=== PATIENT | female | born 1945 | race American Indian/Alaskan Native ===

== ENCOUNTER 2016-09-04 12:37 | Inpatient (IN) | payer MEDICARE ==
[2016-09-04 13:45] LABS: Basophils % (Auto) 1.3 % (0.0-1.8); Eosinophils % (Auto) 1.9 % (0.0-4.3); Hematocrit 34.3 % (30.3-42.9); Hemoglobin 10.8 gm/dl (10.1-14.3); Mean Corpuscular HGB Conc 31 % (30-34); Mean Corpuscular Hemoglobin 31 pg (28-32); Mean Corpuscular Volume 98 fl (79-97); Platelet Count 141 K/mm3 (140-440); White Blood Count 8.7 K/mm3 (4.5-11.0)
[2016-09-04 13:58] LABS: BUN/Creatinine Ratio 9.28; Calcium 8.4 mg/dL (8.4-10.2); Chloride 96.9 mmol/L (98-107); Potassium 3.9 mmol/L (3.6-5.0)
--- NOTE | 2016-09-04 14:16 | Emergency Department Report ---
ED General Adult HPI - General Chief complaint: Dyspnea/Respdistress Stated complaint: CHEST AND BACK PAIN Time Seen by Provider: 09/04/16 13:40 Source: patient, EMS Mode of arrival: Stretcher Limitations: Other - History of Present Illness Initial comments: Patient presents to the emergency department complaining of anterior right sided chest pain which is nonpleuritic and right lower flank pain. She does not complain of cough nor shortness of breath. She does not complain of dysuria or anterior abdominal discomfort. She states she does urinate. Her last dialysis was Monday. She is not complaining of any acute shortness of breath. She is on chronic O2 at 2 L. She states these pains have been present and apparently unrelated for the past few days. She has not done any recent traveling. -: Gradual, days(s) Location: chest, back Quality: aching Consistency: intermittent Improves with: none Worsens with: none Associated Symptoms: denies other symptoms - Related Data Home Medications Medication Instructions Recorded Confirmed Last Taken traMADol [Ultram 50 MG tab] 50 mg PO Q6HR PRN 07/07/15 07/03/16 07/03/16 Simvastatin [Zocor TAB] 40 mg PO QHS 11/30/15 07/03/16 07/03/16 Lactulose 10 gm PO DAILY 07/03/16 07/03/16 07/03/16 Nystatin Oint [Mycostatin Oint] 100,000 units TP BID 07/03/16 07/03/16 07/03/16 Sodium Bicarbonate 650 mg PO BID 07/03/16 07/03/16 07/03/16 Vit B Cplx #11/FA/C/Biot/Zn Ox 1 each PO DAILY 07/03/16 07/03/16 07/03/16 [Dialyvite with Zinc Tablet] Previous Rx's Medication Instructions Recorded Last Taken Type Aspirin [Aspirin BABY CHEW TAB] 81 mg PO QDAY tab.chew 10/04/15 07/03/16 Rx ALPRAZolam [Xanax TAB] 0.5 mg PO Q12HR 30 Days 07/04/16 07/03/16 Rx Insulin NPH/Regular [NovoLIN 70/30] 5 unit SUB-Q QPM #10 ml 07/04/16 07/03/16 Rx Insulin NPH/Regular [NovoLIN 70/30] 10 unit SUB-Q QAM #10 ml 07/04/16 07/03/16 Rx Pantoprazole [Protonix TAB] 40 mg PO QDAY tablet 07/04/16 Unknown Rx Allergies Allergy/AdvReac Type Severity Reaction Status Date / Time Iodinated Contrast Media - AdvReac Swelling Verified 11/30/15 13:54 IV Dye shellfish derived AdvReac Swelling Verified 05/05/14 23:50 ED Review of Systems ROS: Stated complaint: CHEST AND BACK PAIN Other details as noted in HPI Constitutional: denies: chills, fever Eyes: denies: eye pain, eye discharge, vision change ENT: denies: ear pain, throat pain Respiratory: SOB with exertion. denies: cough, wheezing Cardiovascular: as per HPI, chest pain. denies: palpitations Endocrine: no symptoms reported Gastrointestinal: denies: abdominal pain, nausea, diarrhea Genitourinary: denies: urgency, dysuria, discharge Musculoskeletal: denies: back pain, joint swelling, arthralgia Skin: denies: rash, lesions Neurological: denies: headache, weakness, paresthesias Psychiatric: denies: anxiety, depression Hematological/Lymphatic: denies: easy bleeding, easy bruising ED Past Medical Hx - Past Medical History Hx Hypertension: Yes (high cholestrol) Hx Congestive Heart Failure: Yes (09/2015) Hx Diabetes: Yes (IDDM > 5 YEARS) Hx GERD: Yes Hx Renal Disease: Yes (ESRD M,W,F) Hx Arthritis: Yes Hx Psychiatric Treatment: (anxiety) Hx Asthma: Yes Hx COPD: Yes (O2 DEPENDENT) Hx HIV: No Additional medical history: anemia - Surgical History Hx Cholecystectomy: Yes Additional Surgical History: hysterectomy, fibroid tumor removal, vas-cath to right chest - Social History Smoking Status: Former Smoker Substance Use Type: None - Medications Home Medications: Home Medications Medication Instructions Recorded Confirmed Last Taken Type traMADol [Ultram 50 MG tab] 50 mg PO Q6HR PRN 07/07/15 07/03/16 07/03/16 History Aspirin [Aspirin BABY CHEW TAB] 81 mg PO QDAY tab.chew 10/04/15 07/03/16 Rx Simvastatin [Zocor TAB] 40 mg PO QHS 11/30/15 07/03/16 07/03/16 History Lactulose 10 gm PO DAILY 07/03/16 07/03/16 07/03/16 History Nystatin Oint [Mycostatin Oint] 100,000 units TP BID 07/03/16 07/03/16 07/03/16 History Sodium Bicarbonate 650 mg PO BID 07/03/16 07/03/16 07/03/16 History Vit B Cplx #11/FA/C/Biot/Zn Ox 1 each PO DAILY 07/03/16 07/03/16 07/03/16 History [Dialyvite with Zinc Tablet] ALPRAZolam [Xanax TAB] 0.5 mg PO Q12HR 30 Days 07/04/16 07/03/16 07/03/16 Rx Insulin NPH/Regular [NovoLIN 70/30] 5 unit SUB-Q QPM #10 ml 07/04/16 07/03/16 Rx Insulin NPH/Regular [NovoLIN 70/30] 10 unit SUB-Q QAM #10 ml 07/04/16 07/03/16 07/03/16 Rx Pantoprazole [Protonix TAB] 40 mg PO QDAY tablet 07/04/16 Unknown Rx ED Physical Exam - General Limitations: Physical Limitation General appearance: alert, in no apparent distress - Head Head exam: Present: atraumatic, normocephalic - Eye Eye exam: Present: normal appearance. Absent: scleral icterus - ENT ENT exam: Present: mucous membranes moist - Neck Neck exam: Present: normal inspection - Respiratory Respiratory exam: Present: rhonchi (some basilar rhonchi). Absent: respiratory distress - Cardiovascular Cardiovascular Exam: Present: regular rate, normal rhythm. Absent: systolic murmur, diastolic murmur, rubs, gallop - GI/Abdominal GI/Abdominal exam: Present: soft, normal bowel sounds. Absent: distended, tenderness, guarding, rebound, rigid - Extremities Exam Extremities exam: Absent: tenderness - Back Exam Back exam: Present: normal inspection. Absent: CVA tenderness (R), CVA tenderness (L) - Neurological Exam Neurological exam: Present: alert, oriented X3, other (no acute focal deficit) - Psychiatric Psychiatric exam: Present: normal affect, normal mood - Skin Skin exam: Present: warm, dry, intact, normal color. Absent: rash ED Course Vital Signs 09/04/16 09/04/16 09/04/16 12:52 12:55 13:09 Temperature 98.8 F Pulse Rate Respiratory Rate Blood Pressure 172/62 172/62 Blood Pressure [Left] O2 Sat by Pulse 99 78 L Oximetry 09/04/16 09/04/16 09/04/16 13:17 13:47 14:01 Temperature 98.6 F Pulse Rate 92 H 90 90 Respiratory 16 21 Rate Blood Pressure 161/67 Blood Pressure 172/62 [Left] O2 Sat by Pulse 100 100 Oximetry 09/04/16 09/04/16 09/04/16 15:01 16:01 16:49 Temperature Pulse Rate 90 Respiratory 19 Rate Blood Pressure 174/56 128/48 128/48 Blood Pressure [Left] O2 Sat by Pulse 99 93 66 L Oximetry 09/04/16 09/04/16 09/04/16 16:52 17:01 17:15 Temperature Pulse Rate Respiratory 24 Rate Blood Pressure 93/38 93/38 Blood Pressure [Left] O2 Sat by Pulse 99 99 86 Oximetry 09/04/16 09/04/16 09/04/16 17:33 17:46 18:00 Temperature Pulse Rate Respiratory Rate Blood Pressure 93/38 93/38 93/38 Blood Pressure [Left] O2 Sat by Pulse 100 85 Oximetry 09/04/16 09/04/16 09/04/16 18:15 18:30 18:45 Temperature Pulse Rate Respiratory Rate Blood Pressure 151/58 151/58 151/58 Blood Pressure [Left] O2 Sat by Pulse 66 L 89 Oximetry 09/04/16 09/04/16 19:24 19:30 Temperature Pulse Rate 93 H Respiratory 21 Rate Blood Pressure 151/58 151/58 Blood Pressure [Left] O2 Sat by Pulse 58 L 100 Oximetry - Reevaluation(s) Reevaluation #1: I discussed the patient's management with Dr. Garcia. He was inclined to treat her with subcutaneous heparin. He did want to get an emergency VQ scan nonetheless. Both these things were ordered. The patient's blood pressure remained mildly elevated. She was placed on Nitropaste and given a baby aspirin as well. She did not have any substantial pain in the emergency department. She was admitted for further care and evaluation. 09/04/16 19:42 ED Medical Decision Making - Lab Data Result diagrams: 09/04/16 13:28 09/04/16 13:28 Laboratory Results - last 24 hr 09/04/16 09/04/16 13:28 13:28 WBC 8.7 RBC 3.50 L Hgb 10.8 Hct 34.3 MCV 98 H MCH 31 MCHC 31 RDW 13.0 L Plt Count 141 Lymph % (Auto) 23.5 [place] % (Auto) 9.6 H Eos % (Auto) 1.9 Baso % (Auto) 1.3 Lymph # 2.0 [place] # 0.8 Eos # 0.2 Baso # 0.1 Seg Neutrophils % 63.7 Seg Neutrophils # 5.5 Sodium 135 L Potassium 3.9 Chloride 96.9 L Carbon Dioxide 24 Anion Gap 18 BUN 39 H Creatinine 4.2 H Estimated GFR 13 BUN/Creatinine Ratio 9.28 Glucose 185 H Calcium 8.4 Troponin T 0.022 Laboratory Results - last 24 hr 09/04/16 09/04/16 09/04/16 13:28 13:28 14:48 WBC 8.7 RBC 3.50 L Hgb 10.8 Hct 34.3 MCV 98 H MCH 31 MCHC 31 RDW 13.0 L Plt Count 141 Lymph % (Auto) 23.5 [place] % (Auto) 9.6 H Eos % (Auto) 1.9 Baso % (Auto) 1.3 Lymph # 2.0 [place] # 0.8 Eos # 0.2 Baso # 0.1 Seg Neutrophils % 63.7 Seg Neutrophils # 5.5 PT 12.2 INR 0.91 APTT 33.7 Sodium 135 L Potassium 3.9 Chloride 96.9 L Carbon Dioxide 24 Anion Gap 18 BUN 39 H Creatinine 4.2 H Estimated GFR 13 BUN/Creatinine Ratio 9.28 Glucose 185 H Calcium 8.4 Total Bilirubin Direct Bilirubin Indirect Bilirubin AST ALT Alkaline Phosphatase Troponin T 0.022 NT-Pro-B Natriuret Pep Total Protein Albumin Albumin/Globulin Ratio Urine Color Urine Turbidity Urine pH Ur Specific [place] Urine Protein Urine Glucose (UA) Urine Ketones Urine Blood Urine Nitrite Urine Bilirubin Urine Urobilinogen Ur Leukocyte Esterase Urine WBC (Auto) Urine RBC (Auto) U Epithel Cells (Auto) Urine Bacteria (Auto) Urine Mucus 09/04/16 09/04/16 14:48 15:55 WBC RBC Hgb Hct MCV MCH MCHC RDW Plt Count Lymph % (Auto) [place] % (Auto) Eos % (Auto) Baso % (Auto) Lymph # [place] # Eos # Baso # Seg Neutrophils % Seg Neutrophils # PT INR APTT Sodium Potassium Chloride Carbon Dioxide Anion Gap BUN Creatinine Estimated GFR BUN/Creatinine Ratio Glucose Calcium Total Bilirubin 0.4 Direct Bilirubin < 0.2 Indirect Bilirubin 0.2 AST 12 ALT 11 Alkaline Phosphatase 135 H Troponin T NT-Pro-B Natriuret Pep 2326 H Total Protein 6.0 L Albumin 3.8 L Albumin/Globulin Ratio 1.7 Urine Color Straw Urine Turbidity Clear Urine pH 5.0 Ur Specific [place] 1.005 Urine Protein 100 mg/dl Urine Glucose (UA) Neg Urine Ketones Neg Urine Blood Sm Urine Nitrite Neg Urine Bilirubin Neg Urine Urobilinogen < 2.0 Ur Leukocyte Esterase Neg Urine WBC (Auto) < 1.0 Urine RBC (Auto) 1.0 U Epithel Cells (Auto) 2.0 Urine Bacteria (Auto) 2+ Urine Mucus Few - EKG Data -: EKG Interpreted by Me EKG shows normal: sinus rhythm, intervals, QRS complexes, ST-T waves - EKG Data Interpretation: other (anterior fascicular block and nonspecific ST-T wave changes) - Radiology Data Radiology results: report reviewed (low probability of pulmonary embolism on V/ Q scan) interpreted by me: Chest x-ray cardiomegaly CHF Critical care attestation.: If time is entered above; I have spent that time in minutes in the direct care of this critically ill patient, excluding procedure time. ED Disposition Clinical Impression: ESRD on dialysis, Right-sided chest pain, Right flank pain Congestive heart failure Qualifiers: Congestive heart failure type: unspecified congestive heart failure type Congestive heart failure chronicity: acute Qualified Code(s): I50.9 - Heart failure, unspecified Disposition: OP ADMITTED IP TO THIS HOSP Is pt being admited?: Yes Does the pt Need Aspirin: Yes Condition: Stable Instructions: Chest Pain (ED) Time of Disposition: 19:48
[2016-09-04] MEDS ORDERED: NORCO 5/325 PO ONE (14:42)
[2016-09-04 15:13] LABS: INR 0.91 (0.87-1.13)
[2016-09-04 15:14] LABS: Partial Thromboplastin Time 33.7 Sec. (24.2-36.6)
[2016-09-04 15:30] LABS: Alanine Aminotransferase 11 units/L (7-56); Albumin 3.8 g/dL (3.9-5); Albumin/Globulin Ratio 1.7 %; Alkaline Phosphatase 135 units/L (35-129); Bilirubin,Total 0.4 mg/dL (0.1-1.2)
[2016-09-04 15:58] LABS: Bilirubin,Direct < 0.2 mg/dL (0-0.2); Bilirubin,Indirect 0.2 mg/dL
[2016-09-04 16:04] LABS: Bacteria,Urine 2+ /HPF (Negative); Bilirubin,Urine NEG (Negative); Blood,Urine SM (Negative); Ketones,Urine NEG (Negative); Leukocyte Esterase,Urine NEG (Negative); Mucus,Urine FEW /HPF; Nitrite,Urine NEG (Negative); Urobilinogen,Urine < 2.0 mg/dL (<2.0); WBC,Urine < 1.0 /HPF (0.0-6.0)
[2016-09-04] MEDS ORDERED: HEPARIN SUB-Q ONE (18:11)
[2016-09-04] MEDS ORDERED: BABY ASPIRIN PO ONE (19:38)
[2016-09-04] MEDS ORDERED: NITRO-BID 2% TP ONE (19:38)
--- NOTE | 2016-09-04 19:43 | Nuclear Medicine Report ---
FINAL REPORT PROCEDURE: NM LUNG SCAN PERF/VENT TECHNIQUE: Five mCi Tc-99m MAA was injected IV for pulmonary perfusion imaging in multiple projections. 15 mCi xenon 133 gas was inhaled for pulmonary ventilation imaging in multiple projections. HISTORY: R side chest elevated dimer COMPARISON: Chest x-ray from the same day FINDINGS: Matched defect from the enlarged heart is seen. There may be a few small matched defects but no large perfusion defect or mismatched defect is seen. IMPRESSION: Exam has low probability for pulmonary embolus using revised PIOPED criteria.
[2016-09-04] MEDS ORDERED: NON-FORMULARY (Vit B Cplx #11/Fa/C/Biot/Zn Ox [Dialyvite With Zinc Tablet] 1 EACH) PO SCH (19:45)
[2016-09-04] MEDS ORDERED: HEPARIN ONE (20:19)
[2016-09-04] MEDS: BABY ASPIRIN PO SCH (20:50)
[2016-09-04 20:52] LABS: Albumin 3.2 g/dL (3.9-5); Albumin/Globulin Ratio 1.1 %; BUN/Creatinine Ratio 9.55; Bilirubin,Total 0.3 mg/dL (0.1-1.2); Calcium 8.3 mg/dL (8.4-10.2); Chloride 100.4 mmol/L (98-107); Potassium 4.2 mmol/L (3.6-5.0); Total Protein 6.1 g/dL (6.3-8.2)
--- NOTE | 2016-09-04 21:23 | Admit Criteria Form ---
Admission Criteria Documentation: HEART FAILURE: COMMON COMPLICATIONS Clinical Indications for Inpatient Care (Place 'X' for any and all applicable criteria): Ongoing inpatient care may be indicated for heart failure with ANY ONE of the following (1)(2)(3)(4)(5): [ ]I. Ongoing need for care for primary condition requiring frequent therapy adjustments because of changes in cardiac function (eg, drug dosage changes for drugs that are renally metabolized) [ ]II. New-onset heart failure [ ]III. Heart failure with decreased urine output not responsive to attempts to optimize volume status [ ]IV. Acute cardiac ischemia causing or associated with failure [ X]V. Complications of heart failure, including ANY ONE of the following: [ ]a) Pericardial effusion [ ]b) Symptomatic pleural effusion [ ]c) O2 saturation <90% or PO2 < 60 mm Hg (8.0 kPa) on room air or require baseline supplemental O2 [ ]d) Tachypnea [ X]e) Dyspnea [ ]f) Syncope [ ]g) Change in mental status [ ]h) Acute renal insufficiency that is severe (reduction of more than 50% in estimated glomerular filtration rate from baseline) or progressive reduction of more than 25% in estimated glomerular filtration rate from baseline, with creatinine continuing to rise) [ ]i) Hemodynamic instability [ ]j) Anasarca [ ]k) Clinically significant metabolic abnormalities due to heart failure (eg, new-onset metabolic acidosis) Extended stay beyond goal length of stay for primary condition may be needed until ALL of the following are present(1)(3): [ ]a) Stable and effective diuretic regimen established (or patient on stable dialysis regimen if in chronic renal failure) [ ]b) Breathing comfortably at rest [ ]c) Saturation of arterial oxygen greater than 90% or at acceptable baseline [ ]d) Pulmonary edema absent or improved [ ]e) Hemodynamic stability [ ]f) Volume status acceptable on oral medication [ ]g) Peripheral or sacral edema absent or improved [ ]h) Renal function stable and manageable at a lower level of care [ ]i) Complications (eg, pleural effusion) resolved or manageable at a lower level of care [ ]j) Patient or caregiver has received written discharge instructions or educational material addressing activity level, diet, discharge medications, follow-up appointment, weight monitoring, and what to do if symptoms worsen The original [facility] content created by [employer] has been revised. The portions of the content which have been revised are identified through the use of italic text or in bold, and [facility] has neither reviewed nor approved the modified material.All other unmodified content is copyright [facility]. Please see references footnoted in the original [facility] edition 2016 Admission Criteria Met: Yes
[2016-09-04] MEDS: SODIUM BICARBONATE PO SCH (22:00)
[2016-09-04] MEDS: XANAX PO SCH (22:00)
[2016-09-04] MEDS: ZOCOR PO SCH (22:55)
--- NOTE | 2016-09-04 23:59 | History and Physical Report ---
History of Present Illness Date of examination: 09/04/16 Date of admission: 09/04/16 19:27 Chief complaint: V shortness of breath History of present illness: Patient is a 71-year-old lady was a history of end-stage renal disease hemodialysis on Wednesdays and Fridays, congestive heart failure started having right-sided chest pain at home. Dull in nature. Mild to moderate in severity. No known aggravating or relieving factors. Denies any shortness of breath. No diaphoresis. Nonradiatory. Came to the emergency department would be and was found to be elevated as well as creatinine to 43 and 4.3. ProBNP was elevated to over 2300. Admission was therefore requested. Past History Past Medical History: ESRD, heart failure, hypertension, hyperlipidemia Past Surgical History: hysterectomy, Other (left upper arm AV fistula) Social history: denies: smoking, alcohol abuse, IV drug use Family history: no significant family history Medications and Allergies Allergies Allergy/AdvReac Type Severity Reaction Status Date / Time Iodinated Contrast Media - AdvReac Swelling Verified 11/30/15 13:54 IV Dye shellfish derived AdvReac Swelling Verified 05/05/14 23:50 Home Medications Medication Instructions Recorded Confirmed Last Taken Type traMADol [Ultram 50 MG tab] 50 mg PO Q6HR PRN 07/07/15 07/03/16 07/03/16 History Aspirin [Aspirin BABY CHEW TAB] 81 mg PO QDAY tab.chew 10/04/15 07/03/16 Rx Simvastatin [Zocor TAB] 40 mg PO QHS 11/30/15 07/03/16 07/03/16 History Lactulose 10 gm PO DAILY 07/03/16 07/03/16 07/03/16 History Nystatin Oint [Mycostatin Oint] 100,000 units TP BID 07/03/16 07/03/16 07/03/16 History Sodium Bicarbonate 650 mg PO BID 07/03/16 07/03/16 07/03/16 History Vit B Cplx #11/FA/C/Biot/Zn Ox 1 each PO DAILY 07/03/16 07/03/16 07/03/16 History [Dialyvite with Zinc Tablet] ALPRAZolam [Xanax TAB] 0.5 mg PO Q12HR 30 Days 07/04/16 07/03/16 07/03/16 Rx Insulin NPH/Regular [NovoLIN 70/30] 5 unit SUB-Q QPM #10 ml 07/04/16 07/03/16 Rx Insulin NPH/Regular [NovoLIN 70/30] 10 unit SUB-Q QAM #10 ml 07/04/16 07/03/16 07/03/16 Rx Pantoprazole [Protonix TAB] 40 mg PO QDAY tablet 07/04/16 Unknown Rx Active Meds: Active Medications Alprazolam (Xanax) 0.5 mg PO Q12HR [facility] Aspirin (Baby Aspirin) 81 mg PO QDAY [facility] Last Admin: 09/04/16 20:50 Dose: Not Given Enoxaparin Sodium (Lovenox) 30 mg SUB-Q QDAY KRISTY Insulin Human Isoph/Insulin Regular (Novolin 70/30) 10 unit SUB-Q QAM KRISTY Insulin Human Isoph/Insulin Regular (Novolin 70/30) 5 unit SUB-Q QPM [facility] Lactulose (Cephulac) 10 gm PO QDAY [facility] Multivit/Ca Carb/B Cmplx/FA/Prenat (Renal Caps) 1 cap PO QDAY KRISTY Simvastatin (Zocor) 40 mg PO QHS KRISTY Sodium Bicarbonate (Sodium Bicarbonate) 650 mg PO BID [facility] Review of Systems Constitutional: no weight loss, no weight gain Ears, nose, mouth and throat: no ear pain, no ear discharge, no tinnitis, no decreased hearing Respiratory: no cough, no cough with sputum, no excessive sputum, no hemoptysis Gastrointestinal: no nausea, no vomiting, no diarrhea, no melena, no hematochezia Genitourinary Female: no flank pain, no dysuria Musculoskeletal: low back pain, no shooting arm pain, no arm numbness/tingling Integumentary: no rash, no pruritis, no redness Neurological: no transient paralysis, no paralysis, no weakness, no parathesias Psychiatric: no anxiety, no memory loss, no change in sleep habits Endocrine: no cold intolerance, no heat intolerance, no polyphagia, no excessive thirst, no polyuria Hematologic/Lymphatic: no easy bruising, no easy bleeding Allergic/Immunologic: no urticaria, no allergic rhinitis Exam - Constitutional Vitals: Temp Pulse Resp BP Pulse Ox 98.6 F 86 12 148/54 100 09/04/16 13:17 09/04/16 20:47 09/04/16 20:30 09/04/16 20:47 09/04/16 20:30 - EENT Eyes: Present: PERRL ENT: hearing intact - Neck Neck: Present: supple - Respiratory Respiratory: bilateral: CTA - Cardiovascular Rhythm: regular Heart Sounds: Present: S1 & S2 - Extremities Extremities: no ischemia, pulses intact - Abdominal General gastrointestinal: Present: soft, non-tender, non-distended Female genitourinary: Present: deferred - Rectal Rectal Exam: deferred, normal exam-external/orifice, normal rectal tone - Integumentary Integumentary: Present: clear - Musculoskeletal Musculoskeletal: strength equal bilaterally - Psychiatric Psychiatric: appropriate mood/affect - Neurologic Neurologic: CNII-XII intact Results - Labs CBC & Chem 7: 09/04/16 13:28 09/04/16 20:15 Labs: Abnormal lab results 09/04/16 09/04/16 Range/Units 20:15 22:41 BUN 43 H (7-17) mg/dL Creatinine 4.5 H (0.7-1.2) mg/dL Glucose 201 H (65-100) mg/dL POC Glucose 146 H (70-105) Calcium 8.3 L (8.4-10.2) mg/dL Total Protein 6.1 L (6.3-8.2) g/dL Albumin 3.2 L (3.9-5) g/dL Assessment and Plan - Patient Problems (1) Congestive heart failure Diagnosis Date: 09/04/16 Current Visit: Yes Status: Acute Qualifiers: Congestive heart failure type: unspecified congestive heart failure type Congestive heart failure chronicity: acute Qualified Code(s): I50.9 - Heart failure, unspecified Plan to address problem: Strict input and output, daily weights, diuresis with Lasix. And beta blockers and jesus. We will obtain echocardiogram report was done April 2016. (2) Right flank pain Diagnosis Date: 09/04/16 Current Visit: Yes Status: Acute Plan to address problem: Secondary to Osteoarthritis (3) Right-sided chest pain Diagnosis Date: 09/04/16 Current Visit: Yes Status: Acute Plan to address problem: . Concern is for likely pulmonary embolism. Patient has elevated d-dimer. However VQ scan was remarkable for very low probability for PE. (4) ESRD on dialysis Diagnosis Date: 09/04/16 Current Visit: Yes Status: Chronic Plan to address problem: [employer] Systems Technician consulted to continue with hemodialysis (5) Elevated d-dimer Diagnosis Date: 09/04/16 Current Visit: Yes Status: Acute Plan to address problem: Likely secondary to end-stage renal disease VQ scan showed low probability for pulmonary embolism
[2016-09-05] MEDS: PERCOCET 5/325 PO PRN ×3 (05:25→21:01)
--- NOTE | 2016-09-05 08:31 | XRay Report ---
AP CHEST :09/04/16 12:37:00 CLINICAL: Shortness of breath. COMPARISON:07/03/16 FINDINGS: Stable cardiomegaly. Mild central vascular congestion with slight improvement compared to the previous exam. Improved aeration of both lungs. Some clearing in the left lung base and left costophrenic angle. IMPRESSION: CHF with improvement.
--- NOTE | 2016-09-05 09:24 | Consultation ---
History of Present Illness - Reason for Consult Consult date: 09/05/16 (pt was seen and examined this morning. Consult dictated) Past History Past Medical History: ESRD, heart failure, hypertension, hyperlipidemia Past Surgical History: hysterectomy, Other (left upper arm AV fistula) Social history: denies: smoking, alcohol abuse, IV drug use Family history: no significant family history Medications and Allergies Allergies Allergy/AdvReac Type Severity Reaction Status Date / Time Iodinated Contrast Media - AdvReac Swelling Verified 11/30/15 13:54 IV Dye shellfish derived AdvReac Swelling Verified 05/05/14 23:50 Home Medications Medication Instructions Recorded Confirmed Last Taken Type traMADol [Ultram 50 MG tab] 50 mg PO Q6HR PRN 07/07/15 07/03/16 07/03/16 History Aspirin [Aspirin BABY CHEW TAB] 81 mg PO QDAY tab.chew 10/04/15 07/03/16 Rx Simvastatin [Zocor TAB] 40 mg PO QHS 11/30/15 07/03/16 07/03/16 History Lactulose 10 gm PO DAILY 07/03/16 07/03/16 07/03/16 History Nystatin Oint [Mycostatin Oint] 100,000 units TP BID 07/03/16 07/03/16 07/03/16 History Sodium Bicarbonate 650 mg PO BID 07/03/16 07/03/16 07/03/16 History Vit B Cplx #11/FA/C/Biot/Zn Ox 1 each PO DAILY 07/03/16 07/03/16 07/03/16 History [Dialyvite with Zinc Tablet] ALPRAZolam [Xanax TAB] 0.5 mg PO Q12HR 30 Days 07/04/16 07/03/16 07/03/16 Rx Insulin NPH/Regular [NovoLIN 70/30] 5 unit SUB-Q QPM #10 ml 07/04/16 07/03/16 Rx Insulin NPH/Regular [NovoLIN 70/30] 10 unit SUB-Q QAM #10 ml 07/04/16 07/03/16 07/03/16 Rx Pantoprazole [Protonix TAB] 40 mg PO QDAY tablet 07/04/16 Unknown Rx Active Meds: Active Medications Alprazolam (Xanax) 0.5 mg PO Q12HR KRISTY Last Admin: 09/04/16 22:00 Dose: 0.5 mg Aspirin (Baby Aspirin) 81 mg PO QDAY [facility] Last Admin: 09/04/16 20:50 Dose: Not Given Enoxaparin Sodium (Lovenox) 30 mg SUB-Q QDAY [facility] Hydralazine HCl (Apresoline) 20 mg IV ONCE ONE Stop: 09/05/16 09:31 Insulin Human Isoph/Insulin Regular (Novolin 70/30) 10 unit SUB-Q QAM [facility] Insulin Human Isoph/Insulin Regular (Novolin 70/30) 5 unit SUB-Q QPM [facility] Lactulose (Cephulac) 10 gm PO QDAY [facility] Multivit/Ca Carb/B Cmplx/FA/Prenat (Renal Caps) 1 cap PO QDAY [facility] Oxycodone/Acetaminophen (Percocet 5/325) 1 tab PO Q4H PRN PRN Reason: Pain, Moderate (4-6) Last Admin: 09/05/16 05:25 Dose: 1 tab Simvastatin (Zocor) 40 mg PO QHS [facility] Last Admin: 09/04/16 22:55 Dose: 40 mg Sodium Bicarbonate (Sodium Bicarbonate) 650 mg PO BID [facility] Last Admin: 09/04/16 22:00 Dose: 650 mg Exam - Constitutional Vitals: Temp Pulse Resp BP Pulse Ox 98.2 F 90 18 190/82 99 09/05/16 09:03 09/05/16 09:03 09/05/16 09:03 09/05/16 09:03 09/05/16 09:03 Results - Labs CBC & Chem 7: 09/05/16 15:58 09/04/16 20:15 Labs: Abnormal lab results 09/04/16 09/04/16 Range/Units 20:15 22:41 BUN 43 H (7-17) mg/dL Creatinine 4.5 H (0.7-1.2) mg/dL Glucose 201 H (65-100) mg/dL POC Glucose 146 H (70-105) Calcium 8.3 L (8.4-10.2) mg/dL Total Protein 6.1 L (6.3-8.2) g/dL Albumin 3.2 L (3.9-5) g/dL
[2016-09-05] MEDS: LOVENOX SUB-Q SCH ×2 (09:32→11:10)
[2016-09-05] MEDS: APRESOLINE IV ONE ×2 (09:32→11:10)
[2016-09-05] MEDS: CEPHULAC PO SCH ×2 (09:32→11:10)
[2016-09-05] MEDS: Renal Caps PO SCH (09:33)
[2016-09-05] MEDS: SODIUM BICARBONATE PO SCH ×2 (09:33→21:01)
[2016-09-05] MEDS: XANAX PO SCH ×2 (09:33→21:01)
[2016-09-05] MEDS: BABY ASPIRIN PO SCH (09:34)
[2016-09-05] MEDS ORDERED: NACL 0.9% 1000 ML 100 ML IV PRN (09:41)
[2016-09-05] MEDS ORDERED: HEPARIN 10,000 UNITS/10 ML IV PRN (09:41)
[2016-09-05] MEDS ORDERED: CEPHULAC PR SCH (10:00)
[2016-09-05] MEDS ORDERED: APRESOLINE IV SCH (10:00)
[2016-09-05] MEDS ORDERED: CATAPRES PO ONE (12:30)
--- NOTE | 2016-09-05 15:26 | Progress Note ---
Assessment and Plan Assessment and plan: 1. Right-sided chest pain D-dimer was elevated in ER so VQ scan was obtained has low probability for PE Possible costochondritis 2. Hypertensive urgency SBP in 200s this morning Not on any medications at home Received hydralazine and clonidine 1 Start hydralazine scheduled along with HD with ultrafiltration Monitor BP and adjust regimen as needed 3. Diabetes On insulin 70/30 Add Accu-Cheks and SSI to assess insulin requirements 4. Hyperlipidemia On statin 5. ESRD on HD Nephrology consulted to resume regular schedule HD 6. DVT prophylaxis Discontinue Lovenox and start heparin subcutaneous History Interval history: seen on dialysis; this morning SBP in 200, without symptoms Hospitalist Physical - Constitutional Vitals: Temp Pulse Resp BP Pulse Ox 98 F 104 H 22 152/62 97 09/05/16 14:44 09/05/16 14:44 09/05/16 14:44 09/05/16 14:44 09/05/16 09:52 General appearance: Present: no acute distress, obese - EENT Eyes: Present: PERRL, EOM intact. Absent: scleral icterus, conjunctival injection - Neck Neck: Present: supple, normal ROM. Absent: masses or JVD - Respiratory Respiratory effort: normal Respiratory: bilateral: diminished, negative: rhonchi, wheezing - Cardiovascular Rhythm: regular Heart Sounds: Present: S1 & S2. Absent: systolic murmur - Extremities Extremities: no ischemia - Abdominal General gastrointestinal: soft, non-tender, non-distended, normal bowel sounds - Integumentary Integumentary: Present: warm, dry. Absent: jaundice, rash - Psychiatric Psychiatric: cooperative - Neurologic Neurologic: CNII-XII intact, no focal deficits Results - Labs CBC & Chem 7: 09/04/16 13:28 09/04/16 20:15 Labs: Laboratory Last Values WBC 8.7 K/mm3 (4.5-11.0) 09/04/16 13:28 RBC 3.50 M/mm3 (3.65-5.03) L 09/04/16 13:28 Hgb 10.8 gm/dl (10.1-14.3) 09/04/16 13:28 Hct 34.3 % (30.3-42.9) 09/04/16 13:28 MCV 98 fl (79-97) H 09/04/16 13:28 MCH 31 pg (28-32) 09/04/16 13:28 MCHC 31 % (30-34) 09/04/16 13:28 RDW 13.0 % (13.2-15.2) L 09/04/16 13:28 Plt Count 141 K/mm3 (140-440) 09/04/16 13:28 Lymph % (Auto) 23.5 % (13.4-35.0) 09/04/16 13:28 [place] % (Auto) 9.6 % (0.0-7.3) H 09/04/16 13:28 Eos % (Auto) 1.9 % (0.0-4.3) 09/04/16 13:28 Baso % (Auto) 1.3 % (0.0-1.8) 09/04/16 13:28 Lymph # 2.0 K/mm3 (1.2-5.4) 09/04/16 13:28 [place] # 0.8 K/mm3 (0.0-0.8) 09/04/16 13:28 Eos # 0.2 K/mm3 (0.0-0.4) 09/04/16 13:28 Baso # 0.1 K/mm3 (0.0-0.1) 09/04/16 13:28 Seg Neutrophils % 63.7 % (40.0-70.0) 09/04/16 13:28 Seg Neutrophils # 5.5 K/mm3 (1.8-7.7) 09/04/16 13:28 PT 12.2 Sec. (12.2-14.9) 09/04/16 14:48 INR 0.91 (0.87-1.13) 09/04/16 14:48 APTT 33.7 Sec. (24.2-36.6) 09/04/16 14:48 D-Dimer 379.65 ng/mlDDU (0-234) H 09/04/16 17:38 Sodium 138 mmol/L (137-145) 09/04/16 20:15 Potassium 4.2 mmol/L (3.6-5.0) 09/04/16 20:15 Chloride 100.4 mmol/L (98-107) 09/04/16 20:15 Carbon Dioxide 25 mmol/L (22-30) 09/04/16 20:15 Anion Gap 17 mmol/L 09/04/16 20:15 BUN 43 mg/dL (7-17) H 09/04/16 20:15 Creatinine 4.5 mg/dL (0.7-1.2) H 09/04/16 20:15 Estimated GFR 12 ml/min 09/04/16 20:15 BUN/Creatinine Ratio 9.55 % 09/04/16 20:15 Glucose 201 mg/dL (65-100) H 09/04/16 20:15 POC Glucose 211 (70-105) H 09/05/16 09:49 Calcium 8.3 mg/dL (8.4-10.2) L 09/04/16 20:15 Total Bilirubin 0.3 mg/dL (0.1-1.2) 09/04/16 20:15 Direct Bilirubin < 0.2 mg/dL (0-0.2) 09/04/16 14:48 Indirect Bilirubin 0.2 mg/dL 09/04/16 14:48 AST 12 units/L (5-40) 09/04/16 20:15 ALT 10 units/L (7-56) 09/04/16 20:15 Alkaline Phosphatase 125 units/L (35-129) 09/04/16 20:15 Troponin T 0.022 ng/mL (0.00-0.029) 09/04/16 13:28 NT-Pro-B Natriuret Pep 2326 pg/mL (0-900) H 09/04/16 14:48 Total Protein 6.1 g/dL (6.3-8.2) L 09/04/16 20:15 Albumin 3.2 g/dL (3.9-5) L 09/04/16 20:15 Albumin/Globulin Ratio 1.1 % 09/04/16 20:15 Urine Color Straw (Yellow) 09/04/16 15:55 Urine Turbidity Clear (Clear) 09/04/16 15:55 Urine pH 5.0 (5.0-7.0) 09/04/16 15:55 Ur Specific [place] 1.005 (1.003-1.030) 09/04/16 15:55 Urine Protein 100 mg/dl mg/dL (Negative) 09/04/16 15:55 Urine Glucose (UA) Neg mg/dL (Negative) 09/04/16 15:55 Urine Ketones Neg mg/dL (Negative) 09/04/16 15:55 Urine Blood Sm (Negative) 09/04/16 15:55 Urine Nitrite Neg (Negative) 09/04/16 15:55 Urine Bilirubin Neg (Negative) 09/04/16 15:55 Urine Urobilinogen < 2.0 mg/dL (<2.0) 09/04/16 15:55 Ur Leukocyte Esterase Neg (Negative) 09/04/16 15:55 Urine WBC (Auto) < 1.0 /HPF (0.0-6.0) 09/04/16 15:55 Urine RBC (Auto) 1.0 /HPF (0.0-6.0) 09/04/16 15:55 U Epithel Cells (Auto) 2.0 /HPF (0-13.0) 09/04/16 15:55 Urine Bacteria (Auto) 2+ /HPF (Negative) 09/04/16 15:55 Urine Mucus Few /HPF 09/04/16 15:55 - Imaging and Cardiology Chest x-ray: image reviewed (improved CHF) Imaging and Cardiology: VQ scan with low probability for PE
[2016-09-05 16:26] LABS: Basophils % (Auto) 0.9 % (0.0-1.8); Eosinophils % (Auto) 1.8 % (0.0-4.3); Hematocrit 37.1 % (30.3-42.9); Mean Corpuscular HGB Conc 32 % (30-34); Mean Corpuscular Hemoglobin 31 pg (28-32); Mean Corpuscular Volume 96 fl (79-97); Platelet Count 154 K/mm3 (140-440); Red Blood Count 3.86 M/mm3 (3.65-5.03); Red Cell Distribution Width 12.9 % (13.2-15.2); White Blood Count 7.7 K/mm3 (4.5-11.0)
[2016-09-05] MEDS ORDERED: NACL 0.9 (PRIMING MACHINE ONLY DIALYSIS) MC ONE (17:22)
[2016-09-05] MEDS: ZOCOR PO SCH (21:01)
[2016-09-05] MEDS: HEPARIN SUB-Q SCH (21:01)
[2016-09-05] MEDS: APRESOLINE PO SCH (21:04)
[2016-09-06] MEDS: HEPARIN SUB-Q SCH ×3 (05:26→22:00)
[2016-09-06] MEDS: APRESOLINE PO SCH ×3 (05:26→22:00)
[2016-09-06 05:28] LABS: Albumin 3.3 g/dL (3.9-5); BUN/Creatinine Ratio 8.33; Bilirubin,Total 0.4 mg/dL (0.1-1.2); Calcium 8.5 mg/dL (8.4-10.2); Chloride 94.3 mmol/L (98-107); Potassium 3.8 mmol/L (3.6-5.0); Total Protein 6.5 g/dL (6.3-8.2)
[2016-09-06] MEDS: SODIUM BICARBONATE PO SCH ×2 (09:16→22:00)
[2016-09-06] MEDS: Renal Caps PO SCH (09:16)
[2016-09-06] MEDS: XANAX PO SCH ×2 (09:16→22:00)
[2016-09-06] MEDS: BABY ASPIRIN PO SCH (09:16)
--- NOTE | 2016-09-06 09:29 | Progress Note ---
Assessment and Plan - Patient Problems (1) ESCRF (end stage chronic renal failure) Current Visit: No Status: Chronic Plan to address problem: HD on M/W/. Clinically improving. Denies chest pain today. Continue present meds. (2) Diabetes Current Visit: No Status: Chronic Qualifiers: Diabetes mellitus type: type 2 Diabetes mellitus complication status: with kidney complications (3) HTN (hypertension) Current Visit: No Status: Chronic Qualifiers: Hypertension type: essential hypertension Qualified Code(s): I10 - Essential (primary) hypertension Plan to address problem: BP under better control today Subjective Date of service: 09/06/16 Interval history: pt is alert, oriented to place and person, denies CP or SOB Objective - Vital Signs Vital signs: Vital Signs - 12hr 09/06/16 09/06/16 09/06/16 00:45 01:44 04:10 Temperature 98.7 F 98.3 F Pulse Rate 104 H Pulse Rate [ 104 H 123 H Left] Pulse Rate [ Right] Respiratory 20 22 Rate Blood Pressure Blood Pressure 124/66 106/68 [Right Arm] O2 Sat by Pulse 99 Oximetry 09/06/16 09/06/16 09/06/16 05:26 05:35 07:29 Temperature 98.7 F 99.0 F Pulse Rate 104 H Pulse Rate [ 88 Left] Pulse Rate [ 94 H Right] Respiratory 20 20 Rate Blood Pressure 124/66 Blood Pressure 149/6 149/68 [Right Arm] O2 Sat by Pulse 98 90 Oximetry - General Appearance General appearance: well-developed, obese EENT: mucous membranes moist Neck: no JVD Respiratory: Present: Decreased Breath Sounds Cardiology: regular Gastrointestinal: normoactive bowel sounds Neurologic: alert and oriented x3 Musculoskeletal: other (trace edema) Psychiatric: mood/affect appropriate, cooperative - Lab 09/05/16 15:58 09/06/16 04:49 Most recent lab results Calcium 8.5 mg/dL (8.4-10.2) 09/06/16 04:49
[2016-09-06] MEDS: CEPHULAC PO SCH (10:14)
--- NOTE | 2016-09-06 10:22 | Consultation ---
REASON FOR CONSULTATION: Renal failure. HISTORY OF PRESENT ILLNESS: This 71-year-old -Al[place] female with history of end-stage renal disease, hypertension presented to the Emergency Room with complaints of right side chest pain and back pain. The patient states that she has been hurting for the past 2-3 days from the right side on the chest wall going back to her back. Denies cold, cough, or sore throat. Denies hemoptysis. Denies fever or chills. The patient goes to dialysis 3 times a week on Monday, Monday, Monday, runs for 4 hours. The patient has been on hemodialysis for about a year, gets dialysis with left upper arm AV access. PAST MEDICAL HISTORY: Hypertension, end-stage renal disease, hyperlipidemia, heart failure, status post hysterectomy, history of type 2 diabetes. PERSONAL HISTORY: Denies smoking, alcohol, or drug abuse. FAMILY HISTORY: No family history of kidney failure. ALLERGIES: Iodinated contrast, IV dye, shellfish derived foods. HOME MEDICATIONS: Aspirin 81 mg a day, Zocor 40 mg a day, lactulose p.r.n., vitamin once a day, insulin 70/30, pantoprazole 40 mg once a day. REVIEW OF SYSTEMS: The patient denies headache or dizziness. Denies difficulty swallowing. Denies shortness of breath. Denies abdomen pain, nausea, vomiting, or diarrhea. Denies GI bleeding. Denies dysuria or hematuria. Other review of systems negative. PHYSICAL EXAMINATION: GENERAL: The patient is alert, well-developed pleasant female, not in acute distress. VITAL SIGNS: Blood pressure 140/60, afebrile, pulse 85. NECK: Supple. No JVD. No thyroid enlargement. LUNGS: Clear. HEART: S1, S2 regular. No pericardial rub. ABDOMEN: Soft, bowel sounds present, nontender. EXTREMITIES: 1+ edema. Left upper arm AV access has bruit and thrill. The patient has tenderness over the right side costochondral area. LABORATORY DATA: WBC 7.7, hemoglobin 12.0, hematocrit 37.1, platelets 154,000. D-dimer 379. Sodium 138, potassium 4.2, chloride 100, CO2 of 25, BUN 43, creatinine 4.5, glucose 201, calcium 8.3, albumin 3.2. ASSESSMENT AND PLAN: 1. End-stage renal disease. Hemodialysis as ordered for today. 2. Right side chest pain. 3. Type 2 diabetes. 4. Hypertension. 5. Hypoalbuminemia. 6. Back pain, probably arthritis. Renal diet as ordered. Adjust medications per renal function. Increase dietary protein intake and protein supplements. Tight glycemic control. JOB# [id number] SKYLERK/NTS
[2016-09-06] MEDS: PEPCID PO SCH (10:48)
[2016-09-06] MEDS: PERCOCET 5/325 PO PRN (10:49)
--- NOTE | 2016-09-06 19:29 | Progress Note ---
Assessment and Plan Assessment and plan: 1. Right-sided chest pain D-dimer was elevated in ER so VQ scan was obtained but has low probability for PE Possible costochondritis vs GERD 2. GERD Start famotidine 2. Hypertensive urgency SBP in 200s on admission Not on any medications at home or nothing listed Received hydralazine and clonidine 1 Started on hydralazine scheduled and is s/p HD with ultrafiltration Bp better, but not at goal and HR elevated, so will add BB Continue to monitor and adjust regimen 3. Diabetes On insulin 70/30 Accu-Cheks and SSI to assess insulin requirements 4. Hyperlipidemia On statin 5. ESRD on HD Nephrology consulted and regular schedule HD resumed (MWF) 6. DVT prophylaxis Heparin subcutaneous History Interval history: feeling better today, no chest pain, c/o acid reflux, indigestion Hospitalist Physical - Constitutional Vitals: Temp Pulse Resp BP Pulse Ox 98.7 F 98 H 18 147/83 98 09/06/16 16:11 09/06/16 16:11 09/06/16 16:11 09/06/16 16:11 09/06/16 16:11 General appearance: Present: no acute distress, obese - EENT Eyes: Present: PERRL, EOM intact ENT: poor dentition - Neck Neck: Present: supple, normal ROM - Respiratory Respiratory effort: normal Respiratory: bilateral: CTA, negative: rhonchi, wheezing - Cardiovascular Rhythm: regular Heart Sounds: Present: S1 & S2. Absent: systolic murmur - Extremities Extremities: no ischemia - Abdominal General gastrointestinal: soft, non-tender, non-distended, normal bowel sounds - Psychiatric Psychiatric: cooperative - Neurologic Neurologic: moves all extremities Results - Labs CBC & Chem 7: 09/05/16 15:58 09/06/16 04:49 Labs: Laboratory Last Values WBC 7.7 K/mm3 (4.5-11.0) 09/05/16 15:58 RBC 3.86 M/mm3 (3.65-5.03) 09/05/16 15:58 Hgb 12.0 gm/dl (10.1-14.3) 09/05/16 15:58 Hct 37.1 % (30.3-42.9) 09/05/16 15:58 MCV 96 fl (79-97) 09/05/16 15:58 MCH 31 pg (28-32) 09/05/16 15:58 MCHC 32 % (30-34) 09/05/16 15:58 RDW 12.9 % (13.2-15.2) L 09/05/16 15:58 Plt Count 154 K/mm3 (140-440) 09/05/16 15:58 Lymph % (Auto) 24.0 % (13.4-35.0) 09/05/16 15:58 [place] % (Auto) 9.3 % (0.0-7.3) H 09/05/16 15:58 Eos % (Auto) 1.8 % (0.0-4.3) 09/05/16 15:58 Baso % (Auto) 0.9 % (0.0-1.8) 09/05/16 15:58 Lymph # 1.8 K/mm3 (1.2-5.4) 09/05/16 15:58 [place] # 0.7 K/mm3 (0.0-0.8) 09/05/16 15:58 Eos # 0.1 K/mm3 (0.0-0.4) 09/05/16 15:58 Baso # 0.1 K/mm3 (0.0-0.1) 09/05/16 15:58 Seg Neutrophils % 64.0 % (40.0-70.0) 09/05/16 15:58 Seg Neutrophils # 4.9 K/mm3 (1.8-7.7) 09/05/16 15:58 PT 12.2 Sec. (12.2-14.9) 09/04/16 14:48 INR 0.91 (0.87-1.13) 09/04/16 14:48 APTT 33.7 Sec. (24.2-36.6) 09/04/16 14:48 D-Dimer 379.65 ng/mlDDU (0-234) H 09/04/16 17:38 Sodium 137 mmol/L (137-145) 09/06/16 04:49 Potassium 3.8 mmol/L (3.6-5.0) 09/06/16 04:49 Chloride 94.3 mmol/L (98-107) L 09/06/16 04:49 Carbon Dioxide 28 mmol/L (22-30) 09/06/16 04:49 Anion Gap 19 mmol/L 09/06/16 04:49 BUN 30 mg/dL (7-17) H 09/06/16 04:49 Creatinine 3.6 mg/dL (0.7-1.2) H 09/06/16 04:49 Estimated GFR 15 ml/min 09/06/16 04:49 BUN/Creatinine Ratio 8.33 % 09/06/16 04:49 Glucose 180 mg/dL (65-100) H 09/06/16 04:49 POC Glucose 306 (70-105) H 09/06/16 16:10 Calcium 8.5 mg/dL (8.4-10.2) 09/06/16 04:49 Total Bilirubin 0.4 mg/dL (0.1-1.2) 09/06/16 04:49 Direct Bilirubin < 0.2 mg/dL (0-0.2) 09/04/16 14:48 Indirect Bilirubin 0.2 mg/dL 09/04/16 14:48 AST 26 units/L (5-40) 09/06/16 04:49 ALT 11 units/L (7-56) 09/06/16 04:49 Alkaline Phosphatase 125 units/L (35-129) 09/06/16 04:49 Troponin T 0.022 ng/mL (0.00-0.029) 09/04/16 13:28 NT-Pro-B Natriuret Pep 2326 pg/mL (0-900) H 09/04/16 14:48 Total Protein 6.5 g/dL (6.3-8.2) 09/06/16 04:49 Albumin 3.3 g/dL (3.9-5) L 09/06/16 04:49 Albumin/Globulin Ratio 1.0 % 09/06/16 04:49 Urine Color Straw (Yellow) 09/04/16 15:55 Urine Turbidity Clear (Clear) 09/04/16 15:55 Urine pH 5.0 (5.0-7.0) 09/04/16 15:55 Ur Specific [place] 1.005 (1.003-1.030) 09/04/16 15:55 Urine Protein 100 mg/dl mg/dL (Negative) 09/04/16 15:55 Urine Glucose (UA) Neg mg/dL (Negative) 09/04/16 15:55 Urine Ketones Neg mg/dL (Negative) 09/04/16 15:55 Urine Blood Sm (Negative) 09/04/16 15:55 Urine Nitrite Neg (Negative) 09/04/16 15:55 Urine Bilirubin Neg (Negative) 09/04/16 15:55 Urine Urobilinogen < 2.0 mg/dL (<2.0) 09/04/16 15:55 Ur Leukocyte Esterase Neg (Negative) 09/04/16 15:55 Urine WBC (Auto) < 1.0 /HPF (0.0-6.0) 09/04/16 15:55 Urine RBC (Auto) 1.0 /HPF (0.0-6.0) 09/04/16 15:55 U Epithel Cells (Auto) 2.0 /HPF (0-13.0) 09/04/16 15:55 Urine Bacteria (Auto) 2+ /HPF (Negative) 09/04/16 15:55 Urine Mucus Few /HPF 09/04/16 15:55
[2016-09-06] MEDS ORDERED: ALUM-MAG HYDROX-SIMETH 200-200-20MG/5ML PO PRN (19:41)
[2016-09-06 20:02] LABS: Basophils % (Auto) 0.7 % (0.0-1.8); Eosinophils % (Auto) 2.1 % (0.0-4.3); Hematocrit 34.9 % (30.3-42.9); Mean Corpuscular HGB Conc 32 % (30-34); Mean Corpuscular Hemoglobin 30 pg (28-32); Mean Corpuscular Volume 96 fl (79-97); Platelet Count 160 K/mm3 (140-440); Red Blood Count 3.63 M/mm3 (3.65-5.03); Red Cell Distribution Width 12.9 % (13.2-15.2); White Blood Count 7.5 K/mm3 (4.5-11.0)
[2016-09-06 20:30] LABS: Albumin 3.7 g/dL (3.9-5); Albumin/Globulin Ratio 1.2 %; BUN/Creatinine Ratio 8.44; Bilirubin,Total 0.2 mg/dL (0.1-1.2); Calcium 8.8 mg/dL (8.4-10.2); Chloride 91.7 mmol/L (98-107); Potassium 4.3 mmol/L (3.6-5.0); Total Protein 6.9 g/dL (6.3-8.2)
[2016-09-06] MEDS: ZOCOR PO SCH (22:00)
[2016-09-06] MEDS: LOPRESSOR PO SCH (22:00)
[2016-09-07] MEDS: APRESOLINE PO SCH ×5 (05:23→22:24)
[2016-09-07] MEDS: HEPARIN SUB-Q SCH ×4 (05:23→22:24)
[2016-09-07] MEDS: LOPRESSOR PO SCH ×4 (10:07→22:23)
[2016-09-07] MEDS: PEPCID PO SCH (10:07)
[2016-09-07] MEDS: SODIUM BICARBONATE PO SCH ×2 (10:07→22:30)
[2016-09-07] MEDS: BABY ASPIRIN PO SCH (10:07)
[2016-09-07] MEDS: Renal Caps PO SCH (10:08)
[2016-09-07] MEDS: CEPHULAC PO SCH ×2 (10:08→10:12)
[2016-09-07] MEDS: XANAX PO SCH ×2 (10:09→22:24)
[2016-09-07] MEDS ORDERED: LOPRESSOR PO SCH (16:50)
--- NOTE | 2016-09-07 16:51 | Progress Note ---
Assessment and Plan Assessment and plan: Right-sided chest pain * D-dimer was elevated in ER so VQ scan was obtained but has low probability for PE * Possible costochondritis vs GERD vs uncontrolled blood pressure * Last echocardiogram on April 2016 showed preserved ejection fraction with impaired relaxation * Troponin level on admission was normal History of GERD * Continue on famotidine Hypertensive emergency * SBP in 200s on admission * Not on any medications at home or nothing listed * Started on hydralazine and metoprolol, increased the dose today * We'll also add Procardia as BP not controlled Diabetes mellitus type II * On insulin 70/30 * Accu-Cheks and SSI to assess insulin requirements * Adjust doses as needed Hyperlipidemia, On statin ESRD on HD * Nephrology consulted and regular schedule HD resumed (MWF) DVT prophylaxis * Heparin subcutaneous History Interval history: Patient seen and examined. Medical records and medication list reviewed. No acute event overnight noted by the RN. Patient is getting hemodialysis now. Blood pressure remains significantly elevated, denies any shortness of breath Chest pain appears to be controlled today Discussed plan of care at bedside with patient. Hospitalist Physical - Physical exam Narrative exam: GENERAL: Obese -[place] female lying on bed appeared to be in no discomfort. HEENT: Normocephalic. Atraumatic. No conjunctival congestion or icterus. Patient has moist mucous membranes. NECK: Supple. Trachea midline. CHEST/LUNGS: Clear to auscultated bilaterally, breathing nonlabored. No wheezes crackles or rhonchi. HEART/CARDIOVASCULAR: Regular in rate and rhythm. S1 and S2 positive. ABDOMEN: Abdomen is soft, nontender. Patient has normal bowel sounds. SKIN: There is no rash. Warm and dry. NEURO: No focal motor deficit. Follows command. MUSCULOSKELETAL: No joint effusion or tenderness. EXTRIMITY: No edema, no cyanosis or clubbing. PSYCH: Cooperative. - Constitutional Vitals: Temp Pulse Resp BP Pulse Ox 98 F 86 22 221/80 97 09/07/16 14:46 09/07/16 16:03 09/07/16 14:46 09/07/16 16:03 09/07/16 12:56 General appearance: Present: no acute distress, obese Results - Labs CBC & Chem 7: 09/07/16 17:39 09/06/16 19:19 Labs: Laboratory Last Values WBC 7.5 K/mm3 (4.5-11.0) 09/06/16 19:19 RBC 3.63 M/mm3 (3.65-5.03) L 09/06/16 19:19 Hgb 11.0 gm/dl (10.1-14.3) 09/06/16 19:19 Hct 34.9 % (30.3-42.9) 09/06/16 19:19 MCV 96 fl (79-97) 09/06/16 19:19 MCH 30 pg (28-32) 09/06/16 19:19 MCHC 32 % (30-34) 09/06/16 19:19 RDW 12.9 % (13.2-15.2) L 09/06/16 19:19 Plt Count 160 K/mm3 (140-440) 09/06/16 19:19 Lymph % (Auto) 28.0 % (13.4-35.0) 09/06/16 19:19 [place] % (Auto) 10.3 % (0.0-7.3) H 09/06/16 19:19 Eos % (Auto) 2.1 % (0.0-4.3) 09/06/16 19:19 Baso % (Auto) 0.7 % (0.0-1.8) 09/06/16 19:19 Lymph # 2.1 K/mm3 (1.2-5.4) 09/06/16 19:19 [place] # 0.8 K/mm3 (0.0-0.8) 09/06/16 19:19 Eos # 0.2 K/mm3 (0.0-0.4) 09/06/16 19:19 Baso # 0.1 K/mm3 (0.0-0.1) 09/06/16 19:19 Seg Neutrophils % 58.9 % (40.0-70.0) 09/06/16 19:19 Seg Neutrophils # 4.4 K/mm3 (1.8-7.7) 09/06/16 19:19 PT 12.2 Sec. (12.2-14.9) 09/04/16 14:48 INR 0.91 (0.87-1.13) 09/04/16 14:48 APTT 33.7 Sec. (24.2-36.6) 09/04/16 14:48 D-Dimer 379.65 ng/mlDDU (0-234) H 09/04/16 17:38 Sodium 136 mmol/L (137-145) L 09/06/16 19:19 Potassium 4.3 mmol/L (3.6-5.0) 09/06/16 19:19 Chloride 91.7 mmol/L (98-107) L 09/06/16 19:19 Carbon Dioxide 27 mmol/L (22-30) 09/06/16 19:19 Anion Gap 22 mmol/L 09/06/16 19:19 BUN 38 mg/dL (7-17) H 09/06/16 19:19 Creatinine 4.5 mg/dL (0.7-1.2) H 09/06/16 19:19 Estimated GFR 12 ml/min 09/06/16 19:19 BUN/Creatinine Ratio 8.44 % 09/06/16 19:19 Glucose 290 mg/dL (65-100) H 09/06/16 19:19 POC Glucose 306 (70-105) H 09/06/16 16:10 Calcium 8.8 mg/dL (8.4-10.2) 09/06/16 19:19 Total Bilirubin 0.2 mg/dL (0.1-1.2) 09/06/16 19:19 Direct Bilirubin < 0.2 mg/dL (0-0.2) 09/04/16 14:48 Indirect Bilirubin 0.2 mg/dL 09/04/16 14:48 AST 16 units/L (5-40) 09/06/16 19:19 ALT 11 units/L (7-56) 09/06/16 19:19 Alkaline Phosphatase 136 units/L (35-129) H 09/06/16 19:19 Troponin T 0.022 ng/mL (0.00-0.029) 09/04/16 13:28 NT-Pro-B Natriuret Pep 2326 pg/mL (0-900) H 09/04/16 14:48 Total Protein 6.9 g/dL (6.3-8.2) 09/06/16 19:19 Albumin 3.7 g/dL (3.9-5) L 09/06/16 19:19 Albumin/Globulin Ratio 1.2 % 09/06/16 19:19 Urine Color Straw (Yellow) 09/04/16 15:55 Urine Turbidity Clear (Clear) 09/04/16 15:55 Urine pH 5.0 (5.0-7.0) 09/04/16 15:55 Ur Specific [place] 1.005 (1.003-1.030) 09/04/16 15:55 Urine Protein 100 mg/dl mg/dL (Negative) 09/04/16 15:55 Urine Glucose (UA) Neg mg/dL (Negative) 09/04/16 15:55 Urine Ketones Neg mg/dL (Negative) 09/04/16 15:55 Urine Blood Sm (Negative) 09/04/16 15:55 Urine Nitrite Neg (Negative) 09/04/16 15:55 Urine Bilirubin Neg (Negative) 09/04/16 15:55 Urine Urobilinogen < 2.0 mg/dL (<2.0) 09/04/16 15:55 Ur Leukocyte Esterase Neg (Negative) 09/04/16 15:55 Urine WBC (Auto) < 1.0 /HPF (0.0-6.0) 09/04/16 15:55 Urine RBC (Auto) 1.0 /HPF (0.0-6.0) 09/04/16 15:55 U Epithel Cells (Auto) 2.0 /HPF (0-13.0) 09/04/16 15:55 Urine Bacteria (Auto) 2+ /HPF (Negative) 09/04/16 15:55 Urine Mucus Few /HPF 09/04/16 15:55
[2016-09-07] MEDS ORDERED: NACL 0.9 (PRIMING MACHINE ONLY DIALYSIS) MC ONE (17:46)
[2016-09-07 18:07] LABS: Basophils % (Auto) 1.2 % (0.0-1.8); Eosinophils % (Auto) 1.8 % (0.0-4.3); Hematocrit 37.5 % (30.3-42.9); Hemoglobin 12.2 gm/dl (10.1-14.3); Mean Corpuscular HGB Conc 33 % (30-34); Mean Corpuscular Hemoglobin 31 pg (28-32); Mean Corpuscular Volume 95 fl (79-97); Platelet Count 193 K/mm3 (140-440); Red Blood Count 3.95 M/mm3 (3.65-5.03); Red Cell Distribution Width 12.7 % (13.2-15.2); White Blood Count 10.3 K/mm3 (4.5-11.0)
--- NOTE | 2016-09-07 18:25 | Progress Note ---
Assessment and Plan - Patient Problems (1) ESCRF (end stage chronic renal failure) Current Visit: No Status: Chronic Plan to address problem: HD on M/W/. Clinically improving. Denies chest pain today. Continue present meds. pt can go back to her outpt dialysis unit (2) Diabetes Current Visit: No Status: Chronic Qualifiers: Diabetes mellitus type: type 2 Diabetes mellitus complication status: with kidney complications (3) HTN (hypertension) Current Visit: No Status: Chronic Qualifiers: Hypertension type: essential hypertension Qualified Code(s): I10 - Essential (primary) hypertension Plan to address problem: systolic BP-needs better control. optimise meds Subjective Date of service: 09/07/16 Interval history: pt is alert, oriented to place and person, denies CP or SOB . Denies abdomen pain Objective - Vital Signs Vital signs: Vital Signs - 12hr 09/07/16 09/07/16 09/07/16 08:59 09:06 12:56 Temperature 98.2 F 98.5 F Pulse Rate Pulse Rate [ 85 Left Dorsalis Pedis] Pulse Rate [ 86 Right Radial] Respiratory 18 18 Rate Blood Pressure Blood Pressure 157/70 182/77 [Right Arm] O2 Sat by Pulse 98 100 97 Oximetry 09/07/16 09/07/16 09/07/16 14:46 15:00 15:13 Temperature 98 F Pulse Rate 86 83 97 H Pulse Rate [ Left Dorsalis Pedis] Pulse Rate [ Right Radial] Respiratory 22 Rate Blood Pressure 224/90 207/83 Blood Pressure [Right Arm] O2 Sat by Pulse Oximetry 09/07/16 09/07/16 09/07/16 15:15 15:30 15:45 Temperature Pulse Rate 83 86 86 Pulse Rate [ Left Dorsalis Pedis] Pulse Rate [ Right Radial] Respiratory Rate Blood Pressure 203/87 191/84 206/96 Blood Pressure [Right Arm] O2 Sat by Pulse Oximetry 09/07/16 09/07/16 09/07/16 16:00 16:02 16:03 Temperature Pulse Rate 88 86 86 Pulse Rate [ Left Dorsalis Pedis] Pulse Rate [ Right Radial] Respiratory Rate Blood Pressure 216/82 221/86 221/80 Blood Pressure [Right Arm] O2 Sat by Pulse Oximetry 09/07/16 09/07/16 09/07/16 16:15 16:30 16:45 Temperature 98 F Pulse Rate 90 84 88 Pulse Rate [ Left Dorsalis Pedis] Pulse Rate [ Right Radial] Respiratory 24 Rate Blood Pressure 222/90 182/76 190/78 Blood Pressure [Right Arm] O2 Sat by Pulse Oximetry 09/07/16 09/07/16 09/07/16 17:00 17:15 17:44 Temperature Pulse Rate 90 88 82 Pulse Rate [ Left Dorsalis Pedis] Pulse Rate [ Right Radial] Respiratory Rate Blood Pressure 188/88 176/82 182/78 Blood Pressure [Right Arm] O2 Sat by Pulse Oximetry - General Appearance General appearance: well-developed, obese EENT: mucous membranes moist Neck: no JVD Respiratory: Present: Decreased Breath Sounds Cardiology: regular Gastrointestinal: normoactive bowel sounds Neurologic: alert and oriented x3 Psychiatric: mood/affect appropriate, cooperative - Lab 09/07/16 17:39 09/06/16 19:19 Most recent lab results Calcium 8.8 mg/dL (8.4-10.2) 09/06/16 19:19
[2016-09-07] MEDS: PERCOCET 5/325 PO PRN (19:35)
[2016-09-07] MEDS: PROCARDIA XL PO SCH (22:23)
[2016-09-07] MEDS: ZOCOR PO SCH (22:24)
[2016-09-08] MEDS: PERCOCET 5/325 PO PRN ×2 (04:05→13:04)
[2016-09-08] MEDS: HEPARIN SUB-Q SCH ×2 (05:41→13:23)
[2016-09-08] MEDS: APRESOLINE PO SCH ×2 (05:42→13:06)
[2016-09-08] MEDS: XANAX PO SCH (09:15)
[2016-09-08] MEDS: PEPCID PO SCH (09:15)
[2016-09-08] MEDS: CEPHULAC PO SCH (09:15)
[2016-09-08] MEDS: BABY ASPIRIN PO SCH (09:16)
[2016-09-08] MEDS: PROCARDIA XL PO SCH (09:16)
[2016-09-08] MEDS: LOPRESSOR PO SCH (09:16)
[2016-09-08] MEDS: Renal Caps PO SCH (09:17)
[2016-09-08] MEDS: SODIUM BICARBONATE PO SCH (09:39)
--- NOTE | 2016-09-08 10:50 | Discharge Summary ---
Providers - Providers Date of Admission: 09/04/16 19:27 Date of discharge: 09/08/16 Attending physician: CLEMENCIA HUDDLESTON 09/04/16 19:42 Consult to Physician [CONS] Routine Consulting Provider: NENA GUILLAUME Reason For Exam: ESRD Place consult to:: Jimmie Notified:: PLEASE CALL MD IN AM Was contact made?: No Primary care physician: MARBLE RUBBER Hospitalization Condition: Stable Hospital course: Discharge diagnoses: Right-sided chest pain * D-dimer was elevated in ER so VQ scan was obtained but has low probability for PE * Possible costochondritis vs GERD vs uncontrolled blood pressure * Last echocardiogram on April 2016 showed preserved ejection fraction with impaired relaxation * Troponin level on admission was normal History of GERD * Continue on famotidine Hypertensive emergency * SBP in 200s on admission * Not on any medications at home or nothing listed * Continue on hydralazine, Procardia and metoprolol Diabetes mellitus type II * Continue On insulin 70/30 Hyperlipidemia, On statin ESRD on HD * Resume regular schedule HD (MWF) outpatient Disposition: DISCHARGED TO HOME OR SELFCARE Time spent for discharge: 32 minutes Core Measure Documentation - Palliative Care Palliative Care/ Comfort Measures: Not Applicable - Core Measures Any of the following diagnoses?: none Exam - Physical Exam Narrative exam: GENERAL: Obese -[place]ymraes female lying on bed appeared to be in no discomfort. HEENT: Normocephalic. Atraumatic. No conjunctival congestion or icterus. Patient has moist mucous membranes. NECK: Supple. Trachea midline. CHEST/LUNGS: Clear to auscultated bilaterally, breathing nonlabored. No wheezes crackles or rhonchi. HEART/CARDIOVASCULAR: Regular in rate and rhythm. S1 and S2 positive. ABDOMEN: Abdomen is soft, nontender. Patient has normal bowel sounds. SKIN: There is no rash. Warm and dry. NEURO: No focal motor deficit. Follows command. MUSCULOSKELETAL: No joint effusion or tenderness. EXTRIMITY: No edema, no cyanosis or clubbing. PSYCH: Cooperative. - Constitutional Vitals: Temp Pulse Resp BP Pulse Ox 98.1 F 88 20 183/59 97 09/08/16 07:32 09/08/16 10:00 09/08/16 10:00 09/08/16 09:16 09/08/16 10:00 Plan Activity: advance as tolerated, fall precautions Weight Bearing Status: Non-Weight Bearing Diet: diabetic, renal Follow up with: PRIMARY CARE, [Primary Care Provider] - 3-5 Days Prescriptions: hydrALAZINE [Apresoline TAB] 50 mg PO Q8HR #90 tablet Metoprolol [Lopressor TAB] 50 mg PO BID #60 tablet NIFEdipine XL [Procardia Xl] 60 mg PO Q12HR #60 tablet
[2016-09-08 11:07] VITALS: BP 155/67
--- NOTE | 2016-09-14 12:17 | Query- Dyspnea ---
Deahebert Henriquez Date:09/14/16 Bark Spudder/CDS:Gibson Gooden Phone#: Exercise your independent professional judgment when responding to query. Questions asked do not imply a particular answer is desired or expected. We greatly appreciate your clarification on this issue. Clinical Documentation States: 71 y/o f admitted 09/04/16 with acute CHF exacerbation. On admission patient was placed on O2 nasal cannula for acute SOB. Patient saturated at 89 % while on oxygen. Patient has PMH ESRD. Clinical Findings Show: [x] RR:_26 [x] Drop of 15mmHg from previous PaO2 - Patient placed upon nasal cannula 2 liters and saturated 89% on more than one occasion. Please clarify if the patient had any of the following conditions based on the above clinical findings: [x ] Respiratory Failure [x] Acute [ ] Acute on Chronic [ ] Chronic [ ] Respiratory failure due to trauma [ ] Acute Respiratory Distress Syndrome [ ] Other: [ ] Unable to determine [ ] Comment/Explanation: Present on Admission: [x ] Yes (Y) [ ] Clinically undeterminable (W) [ ] No (N) Please also document response in your Progress Notes and/or Discharge Summary and indicate if the condition was present on admission. FAHAD
== END 2016-09-08 17:10 | disposition home or self-care (01) | DRG 189 ==
LOC: ED 12:37 → 4A 19:27
PROVIDERS: ADMIT Family Medicine; ATTEND Internal Medicine
DX: J96.00 Acute respiratory failure, unspecified whether with hypoxia or hypercapnia (principal); N18.6 End stage renal disease; I16.1 Hypertensive emergency; Z68.41 Body mass index [BMI] 40.0-44.9, adult; I13.2 Hypertensive heart and chronic kidney disease with heart failure and with stage 5 chronic kidney disease, or end stage renal disease; I50.9 Heart failure, unspecified; E78.00 Pure hypercholesterolemia, unspecified; E11.22 Type 2 diabetes mellitus with diabetic chronic kidney disease; K21.9 Gastro-esophageal reflux disease without esophagitis; M19.90 Unspecified osteoarthritis, unspecified site; J45.909 Unspecified asthma, uncomplicated; J44.9 Chronic obstructive pulmonary disease, unspecified; E78.5 Hyperlipidemia, unspecified; M54.9 Dorsalgia, unspecified; E66.9 Obesity, unspecified; Z79.899 Other long term (current) drug therapy; Z91.041 Radiographic dye allergy status; Z91.013 Allergy to seafood; Z90.49 Acquired absence of other specified parts of digestive tract; Z90.710 Acquired absence of both cervix and uterus; Z87.891 Personal history of nicotine dependence; Z99.2 Dependence on renal dialysis
CPT/HCPCS: 36415; 51701; 71010; 78582; 80048; 80053; 80074; 81001; 82962; 83880; 84484; 85025; 85379; 85610; 85730; 93005; 93010; 94760; A9540; A9558; J0360; J1644; J1650; J1815; J7030